=== PATIENT | female | born 1950 | race Caucasian/White ===

== ENCOUNTER 2021-01-16 15:06 | Emergency (ER) | payer MEDICARE ==
[~2021-01-16] VITALS: Ht 157.5 cm; Wt 83.6 kg
[2021-01-16 15:23] VITALS: BP 169/100; Ht 157.5 cm; Wt 83.6 kg
== END 2021-01-16 17:51 | disposition home or self-care (01) ==
LOC: D.ER 15:06
DX: S16.1XXA Strain of muscle, fascia and tendon at neck level, initial encounter (principal); S09.90XA Unspecified injury of head, initial encounter; S80.02XA Contusion of left knee, initial encounter; S50.01XA Contusion of right elbow, initial encounter; S00.81XA Abrasion of other part of head, initial encounter; S63.619A Unspecified sprain of unspecified finger, initial encounter; W01.0XXA Fall on same level from slipping, tripping and stumbling without subsequent striking against object, initial encounter; Y93.9 Activity, unspecified; Y92.9 Unspecified place or not applicable; I10 Essential (primary) hypertension